=== PATIENT | male | born 1980 | race Two or more races ===

== ENCOUNTER 2020-09-05 11:18 | Observation (INO) | payer BC ==
[~2020-09-05] VITALS: Ht 175.3 cm; Wt 80.2 kg
[2020-09-05 11:56] LABS: BASO % 0.2 % (0.0-1.0); EOS % 0.3 % (0.0-3.0); HEMATOCRIT 45.8 % (42.0-52.0); HEMOGLOBIN 14.5 g/dl (13.5-17.5); LYMPH # 2.2 10^3/uL (1.5-5.0); LYMPH % 17.6 % (24.0-44.0); MEAN CORPUSCULAR HEMOGLOBIN 28.9 pg (27.0-33.0); MEAN CORPUSCULAR HGB CONC 31.7 g/dl (32.0-36.5); MEAN CORPUSCULAR VOLUME 91.4 fl (80.0-96.0); MONO # 0.7 10^3/uL (0.0-0.8); MONO % 5.3 % (0.0-5.0); NEUTROPHILS # 9.6 10^3/uL (1.5-8.5); NEUTROPHILS % 76.2 % (36.0-66.0); PLATELET COUNT, AUTOMATED 233 10^3/uL (150-450); RED BLOOD COUNT 5.01 10^6/uL (4.30-6.10); WHITE BLOOD COUNT 12.6 10^3/uL (4.0-10.0)
--- NOTE | 2020-09-05 11:58 | REP ---
INDICATION: CHEST PAIN COMPARISON: None. TECHNIQUE: Portable AP view of the chest FINDINGS: The mediastinum and cardiac silhouette are within normal limits for portable technique. Blunting to the left diaphragmatic surface and costophrenic angle with subtle opacity suggests acute versus chronic pleural reaction and subtle infiltrate. Remainder of lung espinal are clear. No pneumothorax. Skeletal structures intact. IMPRESSION: Mild pleuroparenchymal changes at the left base suggest acute and/or chronic changes. No prior examinations are available for comparison and correlation with auscultation and physical examination is recommended. <Electronically signed by Héctor Greer > 09/05/20 [id number]
[2020-09-05] MEDS ORDERED: ISOVUE-370 76% 100ML VIAL As Ordered ONE (12:22)
[2020-09-05 12:34] LABS: ALT/SGPT 39 U/L (12-78); BILIRUBIN,DIRECT 0.2 MG/DL (0.0-0.2); BILIRUBIN,TOTAL 0.8 MG/DL (0.2-1.0); BLOOD UREA NITROGEN 10 MG/DL (7-18); CALCIUM LEVEL 9.6 MG/DL (8.5-10.1); CARBON DIOXIDE LEVEL 28 MEQ/L (21-32); CHLORIDE LEVEL 102 MEQ/L (98-107); CREATININE FOR GFR 1.03 MG/DL (0.70-1.30); GLOMERULAR FILTRATION RATE > 60.0 (>60); GLUCOSE, FASTING 114 MG/DL (70-100); LIPASE 51 U/L (73-393); NT-PRO BNP 19 PG/ML (<125); POTASSIUM SERUM 4.1 MEQ/L (3.5-5.1); SODIUM LEVEL 137 MEQ/L (136-145); TOTAL PROTEIN 8.2 GM/DL (6.4-8.2)
--- NOTE | 2020-09-05 12:51 | REP ---
INDICATION: pleuritic CP r/o PE COMPARISON: None. TECHNIQUE: Axial contrast enhanced images from the thoracic inlet to the upper abdomen using pulmonary embolus technique with multiplanar re-formations. 75 ml Isovue 370 intravenous contrast material administered without complication. This CT examination was performed using the following dose reduction techniques: Automated exposure control, adjustment of mA and/or kv according to the patient's size, and use of iterative reconstruction technique. FINDINGS: There is focal pulmonary embolus in segmental branch to the anterior left lower lobe with small to moderate peripheral consolidation. Mild left posterior basilar atelectasis and small left pleural effusion also noted. Right hemithorax is essentially clear. No pneumothorax. Tracheobronchial tree is patent. No significant adenopathy. Thoracic aorta and heart/pericardium are normal. Surrounding musculoskeletal structures are intact. Upper abdomen demonstrates normal bilateral adrenal glands. IMPRESSION: 1. Pulmonary embolus in the segmental branch to the anterior left lower lobe with associated peripheral area of consolidation. Minimal left posterior basilar atelectasis and small pleural effusion are also identified. <Electronically signed by Héctor Greer > 09/05/20 [id number]
[2020-09-05] MEDS ORDERED: ACETAMINOPHEN TAB 650MG DOSE (2X325MG) PO PRN (13:45)
[2020-09-05] MEDS ORDERED: KETOROLAC 30 MG/ML 1ML VIAL IV PRN (13:45)
[2020-09-05 14:00] VITALS: BP 136/87
--- NOTE | 2020-09-05 14:03 | REP ---
INDICATION: PE ?DVT COMPARISON: None. TECHNIQUE: Pantoja scale and color Doppler evaluation of the right and left lower extremities using linear high frequency transducer. FINDINGS: Ultrasound examination of the right and left lower extremity deep venous structures from the common femoral vein to the popliteal vein demonstrates normal compressibility flow and wave patterns in response to respiration and augmentation. There is no evidence for deep venous thrombosis. 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 IMPRESSION: No evidence for deep venous thrombosis. <Electronically signed by Héctor Greer > 09/05/20 [id number]
[2020-09-05 14:26] LABS: RSV AMPLIFICATION NEGATIVE (NEGATIVE)
--- NOTE | 2020-09-05 14:31 | HPEPDOC ---
[facility] Medical History & Physical Date of Admission Sep 05, 2020 Date of Service: Sep 05, 2020 Attending Physician: Socorro Irizarry MD History and Physical CHIEF COMPLAINT: left side chest pain HISTORY OF PRESENT ILLNESS: Patient is a 40 y/o M with no significant PMH who presented to [facility] with chief complaint of acute onset of left side chest pain 09/03/20. Patient states pain was located on the left chest lateral to the left breast, constant, 7/10 on pain scale, sharp and localized. The pain was new to him. He states the pain was worsened with movement, laughing, coughing, deep breathing. He states the only medication that helped with pain control was a Tylenol with aspirin. Other a ssociated symptoms include shortness of breath and chills. The patient denies any coughing, fevers, recent long trips either in a car or in a plane, history of blood clots, history of family members with blood clot or blood issues, hormone therapy or changes in home medication. Due to persistent pain the patient came to the emergency room for further workup. In the ER, VS were stable.D Dimer elevated, CTA chest showed: 1. Pulmonary embolus in the segmental branch to the anterior left lower lobe with associated peripheral area of consolidation. Minimal left posterior basilar atelectasis and small pleural effusion are also identified. US lower ext pending. COVID pending . First set of troponin negative, all other labs were unremarkable. Patient had continued chest pain with deep breathing. He was admitted under observation status for chest pain, shortness of breath likely 2/2 to pulmonary embolus, community acquired PNA. REVIEW OF SYSTEMS: CONSTITUTIONAL: Denies lack of energy, unexplained weight gain or weight loss, loss of appetite, fever, night sweats EYES: Denies eye drainage, eye pain, visual changes, dry/irritated eye EARS, NOSE, MOUTH, THROAT: Denies difficulty hearing, ringing in ears, mouth sores, loose teeth, sore throat, facial numbness or pain NECK: Denies swollen glands CARDIOVASCULAR: Denies irregular heartbeat, racing heart, chest pains, swelling of feet or legs, pain in legs with walking RESPIRATORY: Denies night sweats, wheezing, sputum production, oxygen at home, coughing up blood, cough lasting > 1 month GASTROINTESTINAL: Denies abdominal pain, constipation, bloody stool, diarrhea, heartburn, nausea, vomiting GENITOURINARY: Denies painful urination, bloody urine, frequent urination, urgency, leaking urine, impotence MUSCULOSKELETAL: Denies joint pain, muscle pain, leg swelling INTEGUMENTARY: Denies rash, itching, new skin lesion, change in existing skin lesion, hair loss or increase, breast changes. NEUROLOGICAL: Denies headaches, dizziness, difficulty walking, numbness or tingling PSYCHIATRIC: Denies depression, anxiety, recurrent bad thoughts, mood swings, hallucinations PAST MEDICAL HISTORY: None PAST SURGICAL HISTORY: Right knee/meniscus surgery FAMILY HISTORY: Father: HTN, alive Mother: at young age from MVA SOCIAL HISTORY: Denies smoking, illicit drug use. Drinks alcohol very rarely, on special occasions. Lives with his locally. PCP- Jamal Do MD. Full Code. ALLERGIES: Please see below. HOME MEDICATIONS: Please see below. PHYSICAL EXAMINATION: VS: Please see below CONSTITUTIONAL: No acute distress, resting comfortably, AAO x 3 EYES: PERRLA, EOM intact, corrective lenses in place HENT, MOUTH: Normocephalic, atraumatic, moist mucous membranes NECK: SUPPLE, no JVD, no lymphadenopathy, no carotid bruit CV: Regular rate and rhythm, S1S2 normal, no murmurs/rubs/gallops RESPIRATORY: Clear to auscultation bilaterally, no rales/rhonchi/wheezes GI: BS positive in 4 quadrants, soft, nontender, nondistended, no rebound or guarding, no organomegaly : Deferred MUSCULOSKELETAL: Normal ROM. No cyanosis, clubbing, swelling, joint deformity, extremity edema INTEGUMENTARY: Intact, no rashes, no lesions, no erythema NEUROLOGIC: Cranial Nerves II-XII are intact, no focal deficits PSYCHIATRIC: Mood and affect are normal LABORATORY DATA: Please see below IMAGING: CTA chest: Pulmonary embolus in the segmental branch to the anterior left lower lobe with associated peripheral area of consolidation. Minimal left posterior basilar atelectasis and small pleural effusion are also identified. Doppler LE b/l: Pending results ASSESSMENT: 40 y/o M with no significant PMH admitted under observation status for further workup/treatment of chest pain, shortness of breath likely 2/2 to pulmonary embolus, community acquired PNA. PLAN: Chest pain likely multifactorial 2/2 to pulmonary embolus and PNA. No known cardiac RF. -Currently saturating well on RA -Trop x 1 neg, f/u repeat troponins over this evening -ECG NSR -Tylenol, toradol PRN, tele -Please see individual plans of PE and PNA treatment below Pulmonary embolus, unprovoked -Denies RF -Doppler LE: pending -Starting on lovenox 80 mg SC BID for today, Incentive spirometer -Can likely transition to PO xarelto in the AM -Protein C&S, Factor II, Factor V Leiden and Antithrombin III panel ordered and will likely take time to return. Would recommend patient f/u with PCP this coming week to receive results after discharge. Community Acquired PNA -CT chest above -WBC wnl, afebrile -Started on PO levofloxacin -Tylenol, IS Q2H while awake DVT px -SC Enoxaparin BID DISPOSITION: Admitted under observation status for treatment/workup above. PLan is discharge home when medically improved. Vital Signs Vital Signs Date Time Temp Pulse Resp B/P (MAP) Pulse Ox O2 Delivery O2 Flow Rate FiO2 09/05/20 13:30 77 20 126/80 (95) 99 Room Air 09/05/20 11:19 97.4 Laboratory Data Labs 24H Laboratory Tests 2 09/05/20 11:46: Immature Granulocyte % (Auto) 0.4, Neutrophils (%) (Auto) 76.2H, Lymphocytes (%) (Auto) 17.6L, Monocytes (%) (Auto) 5.3H, Eosinophils (%) (Auto) 0.3, Basophils (%) (Auto) 0.2, Neutrophils # (Auto) 9.6H, Lymphocytes # (Auto) 2.2, Monocytes # (Auto) 0.7, Eosinophils # (Auto) 0.0, Basophils # (Auto) 0.0, Nucleated Red Blood Cells % (auto) 0.0, D-Dimer, Quantitative 848.51H, Anion Gap 7L, Glomerular Filtration Rate > 60.0, Calcium Level 9.6, Total Bilirubin 0.8, Direct Bilirubin 0.2, Aspartate Amino Transf (AST/SGOT) 16, Alanine Aminotransferase (ALT/SGPT) 39, Alkaline Phosphatase 94, AA-Voo-C-Type Natriuretic Peptide 19, Total Protein 8.2, Albumin 4.0, Albumin/Globulin Ratio 1.0, Lipase 51L, Thyroid Stimulating Hormone (TSH) 1.390 09/05/20 11:47: POC Glucose (Misc Panel) 121H, POC Sodium (Misc Panel) 137, POC Potassium (Misc Panel) 3.9, POC Chloride (Misc Panel) 99, POC Total CO2 (Misc Panel) 27.0, POC Blood Urea Nitrogen (Misc Panel 10, POC Ionized Calcium (Misc Panel) 4.8, POC Creatinine (Misc Panel) 0.9, POC Hematocrit (Misc Panel) 44.0 09/05/20 11:48: POC Troponin I (Misc) 0.00 09/05/20 13:39: CBC/BMP Laboratory Tests 09/05/20 11:46 Home Medications No Active Prescriptions or Reported Meds Allergies Coded Allergies: No Known Allergies (Unverified , 09/05/20) A-FIB/CHADSVASC A-FIB History Current/History of A-Fib/PAF?: No Current PO Anticoag Therapy: No Age/Risk Factor Scoring CHADSVASC: CHADSVASC Response (Comments) Value Age Risk Factor Age < 65 years old 0 Gender Risk Factor Male 0 Hx of CHF No 0 Hx of HTN No 0 Hx of Stroke/TIA/or VTE No 0 Hx of Diabetes No 0 Hx of Vascular Disease No 0 Total 0 Treatment Treatment ordered: Other Other anticoagulant ordered: lovenox BID Socorro Irizarry MD Sep 05, 2020 14:31
[2020-09-05 14:32] LABS: INR 0.96
[2020-09-05 14:33] LABS: PARTIAL THROMBOPLASTIN TIME 36.1 SECONDS (24.2-38.5)
--- NOTE | 2020-09-05 14:40 | ECGEPIP ---
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
[2020-09-05] MEDS: ENOXAPARIN 80MG/0.8ML SYRINGE (J1650 PER 10MG) SC SCH (17:35)
[2020-09-05] MEDS ORDERED: LevoFLOXacin 750 MG TABLET PO SCH (18:00)
[2020-09-05 22:00] VITALS: BP 133/83
[2020-09-06] MEDS: ENOXAPARIN 80MG/0.8ML SYRINGE (J1650 PER 10MG) SC SCH (04:12)
[2020-09-06 06:00] VITALS: BP 144/79
[2020-09-06 06:51] LABS: HEMATOCRIT 42.7 % (42.0-52.0); HEMOGLOBIN 13.3 g/dl (13.5-17.5); MEAN CORPUSCULAR HGB CONC 31.1 g/dl (32.0-36.5); MEAN CORPUSCULAR VOLUME 93.2 fl (80.0-96.0); PLATELET COUNT, AUTOMATED 206 10^3/uL (150-450); RED BLOOD COUNT 4.58 10^6/uL (4.30-6.10); WHITE BLOOD COUNT 12.9 10^3/uL (4.0-10.0)
[2020-09-06 07:24] LABS: ALBUMIN 3.4 GM/DL (3.2-5.2); ALT/SGPT 37 U/L (12-78); BILIRUBIN,TOTAL 0.5 MG/DL (0.2-1.0); BLOOD UREA NITROGEN 17 MG/DL (7-18); CALCIUM LEVEL 8.7 MG/DL (8.5-10.1); CARBON DIOXIDE LEVEL 29 MEQ/L (21-32); CHLORIDE LEVEL 108 MEQ/L (98-107); CREATININE FOR GFR 1.14 MG/DL (0.70-1.30); GLOMERULAR FILTRATION RATE > 60.0 (>60); GLUCOSE, FASTING 114 MG/DL (70-100); POTASSIUM SERUM 4.5 MEQ/L (3.5-5.1); SODIUM LEVEL 141 MEQ/L (136-145); TOTAL PROTEIN 6.9 GM/DL (6.4-8.2)
[2020-09-06] MEDS ORDERED: LEVO500T3 PO (08:33)
[2020-09-06] MEDS ORDERED: ACET325C5 PO (08:33)
[2020-09-06] MEDS ORDERED: XARE15TA PO (08:33)
[2020-09-06] MEDS ORDERED: IBUP-1114 PO (10:24)
--- NOTE | 2020-09-06 13:18 | DS.PDOC ---
Discharge Summary General Date of Admission Sep 05, 2020 at 11:19 Date of Discharge 09/06/20 Attending Physician: Socorro Irizarry MD Discharge Summary HISTORY OF PRESENT ILLNESS: Patient is a 40 y/o M with no significant PMH who presented to [facility] with chief complaint of acute onset of left side chest pain 09/03/20. Patient states pain was located on the left chest lateral to the left breast, constant, 7/10 on pain scale, sharp and localized. The pain was new to him. He states the pain was worsened with movement, laughing, coughing, deep breathing. He states the only medication that helped with pain control was a Tylenol with aspirin. Other associated symptoms include shortness of breath and chills. The patient denies any coughing, fevers, recent long trips either in a car or in a plane, history of blood clots, history of family members with blood clot or blood issues, hormone therapy or changes in home medication. Due to persistent pain the patient came to the emergency room for further workup. In the ER, VS were stable.D Dimer elevated, CTA chest showed: 1. Pulmonary embolus in the segmental branch to the anterior left lower lobe with associated peripheral area of consolidation. Minimal left posterior basilar atelectasis and small pleural effusion are also identified. US lower ext pending. COVID pending . First set of troponin negative, all other labs were unremarkable. Patient had continued chest pain with deep breathing. He was admitted under observation status for chest pain, shortness of breath likely 2/2 to pulmonary embolus, community acquired PNA. HOSPITAL COURSE: Patient remained on RA during hospital stay. He was tachycardic and had in termittent chest pain as described above, controlled with medications. Incentive spirometer was prescribed and he followed instructions to continue to use. Trop neg x 3 sets overnight. Doppler lower ext: neg for DVT. Overall, by next AM after admission patient felt improved. I advised him that he may want to take tylenol scheduled for the next several days instead of "as needed", this will help decrease pain throughout the day. After those several days, he can switched to "as needed" every 6hours. I also added ibuprofen to use "as needed" while he is using the scheduled tylenol. He is also encouraged to eat a small snack or meal with taking xarelto- this is important and helps with its efficacy. he is encouraged to hydrate and eat adequately while on these medications. He is advised to call and follow up with PCP after discharge within 1-2 weeks. He is advised to bring discharge instructions with him to his next appointment with your PCP. They will need to follow up on additional tests that were drawn to help diagnose/rule out causes for PE (Protein C and S, Antithrombin III, Factor V Leiden, etc). He is also encouraged to continue to use incentive spirometer device at home Q2 hours while awake for then next 5-6 days. REVIEW OF SYSTEMS: CONSTITUTIONAL: Denies lack of energy, unexplained weight gain or weight loss, loss of appetite, fever, night sweats EYES: Denies eye drainage, eye pain, visual changes, dry/irritated eye EARS, NOSE, MOUTH, THROAT: Denies difficulty hearing, ringing in ears, mouth sores, loose teeth, sore throat, facial numbness or pain NECK: Denies swollen glands CARDIOVASCULAR: Denies irregular heartbeat, racing heart, chest pains, swelling of feet or legs, pain in legs with walking RESPIRATORY: Denies night sweats, wheezing, sputum production, oxygen at home, coughing up blood, cough lasting > 1 month GASTROINTESTINAL: Denies abdominal pain, constipation, bloody stool, diarrhea, heartburn, nausea, vomiting GENITOURINARY: Denies painful urination, bloody urine, frequent urination, urgency, leaking urine, impotence MUSCULOSKELETAL: Denies joint pain, muscle pain, leg swelling INTEGUMENTARY: Denies rash, itching, new skin lesion, change in existing skin lesion, hair loss or increase, breast changes. NEUROLOGICAL: Denies headaches, dizziness, difficulty walking, numbness or tingling PSYCHIATRIC: Denies depression, anxiety, recurrent bad thoughts, mood swings, hallucinations PAST MEDICAL HISTORY: None PAST SURGICAL HISTORY: Right knee/meniscus surgery FAMILY HISTORY: Father: HTN, alive Mother: at young age from MVA SOCIAL HISTORY: Denies smoking, illicit drug use. Drinks alcohol very rarely, on special occasio ns. Lives with his locally. PCP- Jamal Do MD. Full Code. ALLERGIES: Please see below. HOME MEDICATIONS: Please see below. PHYSICAL EXAMINATION: VS: Please see below CONSTITUTIONAL: No acute distress, resting comfortably, AAO x 3 EYES: PERRLA, EOM intact, corrective lenses in place HENT, MOUTH: Normocephalic, atraumatic, moist mucous membranes NECK: SUPPLE, no JVD, no lymphadenopathy, no carotid bruit CV: Regular rate and rhythm, S1S2 normal, no murmurs/rubs/gallops RESPIRATORY: Clear to auscultation bilaterally, no rales/rhonchi/wheezes GI: BS positive in 4 quadrants, soft, nontender, nondistended, no rebound or guarding, no organomegaly : Deferred MUSCULOSKELETAL: Normal ROM. No cyanosis, clubbing, swelling, joint deformity, extremity edema INTEGUMENTARY: Intact, no rashes, no lesions, no erythema NEUROLOGIC: Cranial Nerves II-XII are intact, no focal deficits PSYCHIATRIC: Mood and affect are normal LABORATORY DATA: Please see below IMAGING: CTA chest: Pulmonary embolus in the segmental branch to the anterior left lower lobe with associated peripheral area of consolidation. Minimal left posterior basilar atelectasis and small pleural effusion are also identified. Doppler LE b/l: neg for DVT ASSESSMENT: 40 y/o M with no significant PMH admitted under observation status for further workup/treatment of chest pain, shortness of breath likely 2/2 to pulmonary embolus, community acquired PNA. PLAN: Chest pain likely multifactorial 2/2 to pulmonary embolus and PNA. No known cardiac RF. -Currently saturating well on RA -Trop x3 neg -ECG NSR -Tylenol, ibuprofen PRN -Please see individual plans of PE and PNA treatment below Pulmonary embolus, unprovoked -Denies RF -Doppler LE: neg -Protein C&S, Factor II, Factor V Leiden and Antithrombin III panel ordered and will likely take time to return. Would recommend patient f/u with PCP this coming week to receive results after discharge. -Started on xarelto 15 mg PO BID x 21 days, will need script by PCP for new dose of 20 mg Po daily after 21 days to be sent into pharmacy. -Tylenol, ibuprofen PRN for pain. IS encouraged to be used as o/p Q2H while awake for next 5 days. Community Acquired PNA -CT chest above -WBC wnl, afebrile -Started on PO levofloxacin x7 days -Tylenol, IS Q2H while awake DVT px -xarelto DISPOSITION: D/lisa home today to follow up with PCP within 1-2 weeks after discharge. TIME SPENT ON DISCHARGE: Greater than 30 minutes. Vital Signs/I&Os Vital Signs Date Time Temp Pulse Resp B/P (MAP) Pulse Ox O2 Delivery O2 Flow Rate FiO2 09/06/20 06:00 98.1 95 19 144/79 (100) 96 Room Air I&O- Last 24 Hours up to 6 AM 09/06/20 05:59 Intake Total 1250 ml Output Total 200 ml Balance 1050 ml Laboratory Data Labs 24H Laboratory Tests 2 09/05/20 13:39: Coronavirus (COVID-19)(PCR) NEGATIVE, Influenza Type A (RT-PCR) NEGATIVE, Influenza Type B (RT-PCR) NEGATIVE, Respiratory Syncytial Virus (PCR) NEGATIVE 09/05/20 14:07: Prothrombin Time 13.0, Prothromb Time International Ratio 0.96, Activated Partial Thromboplast Time 36.1 09/05/20 15:48: Troponin I < 0.02 09/05/20 20:15: Troponin I < 0.02 09/06/20 06:39: Nucleated Red Blood Cells % (auto) 0.0, Anion Gap 4L, Glomerular Filtration Rate > 60.0, Calcium Level 8.7, Total Bilirubin 0.5, Aspartate Amino Transf (AST/SGOT) 16, Alanine Aminotransferase (ALT/SGPT) 37, Alkaline Phosphatase 85, Total Protein 6.9, Albumin 3.4, Albumin/Globulin Ratio 1.0 CBC/BMP Laboratory Tests 09/06/20 06:39 Discharge Medications Scheduled Levofloxacin (Levofloxacin) 500 Mg Tablet, 500 MG PO DAILY Rivaroxaban (Xarelto) 15 Mg Tablet, 15 MG PO BID Scheduled PRN Acetaminophen (Tylenol) 325 Mg Capsule, 650 MG PO Q6HP PRN for PAIN OR FEVER Ibuprofen (Ibuprofen) 400 Mg Tablet, 1 TAB PO Q6HP PRN for fever Allergies Coded Allergies: No Known Allergies (Unverified , 09/05/20) Socorro Irizarry MD Sep 06, 2020 13:18
[2020-09-10 19:06] LABS: ANTI THROMBIN 3 ANTIGEN IMMUNO 118 % (72-124); ANTI THROMBIN 3 FUNCT ACTIVITY 118 % (75-135); CARDIOLIPIN IGA ANTIBODY <9 APL U/mL (0-11); CARDIOLIPIN IGG ANTIBODY <9 GPL U/mL (0-14); CARDIOLIPIN IGM ANTIBODY 9 MPL U/mL (0-12); PHOSPHOLIPIDS LEVEL 211 mg/dL (150-250); PROTEIN C FUNCTIONAL ACTIVITY 127 % (73-180); PROTEIN S FUNCTIONAL ACTIVITY 88 % (63-140)
[2020-09-11 10:42] LABS: DRVV SCREEN 37.2 SEC
[2020-09-11 10:47] LABS: PTT LUPUS TYPE ANTICOAG SCREEN 0.9 (0-1.2)
== END 2020-09-06 11:42 | disposition home or self-care (01) ==
LOC: M ED 11:18 → M ED INP 11:19 → M MSPAV 14:43
PROVIDERS: ADMIT Internal Medicine; ATTEND Internal Medicine
DX: I26.99 Other pulmonary embolism without acute cor pulmonale (principal); J18.9 Pneumonia, unspecified organism; Z79.899 Other long term (current) drug therapy
CPT/HCPCS: 36415; 71045; 71275; 80047; 80048; 80053; 80076; 81240; 83690; 83880; 84311; 84443; 84484; 85025; 85027; 85300; 85301; 85303; 85305; 85379; 85610; 85730; 86147; 87631; 93005; 93041; 93970; 94760; 96372; 96374; 99285; J1650; J1885; Q9967

== ENCOUNTER → 2020-09-17 | Outpatient (REF) | payer BC ==
[~2020-09-17] MED LIST: ACET325C5 PO; IBUP-1114 PO; LEVO500T3 PO; XARE15TA PO
[2020-09-17 14:09] LABS: CHOLESTEROL RISK RATIO 5.611 (<5)
[2020-09-17 14:13] LABS: HEMOGLOBIN A1c 5.7 %
== END ==
LOC: M SFHCPLAZ 10:22
PROVIDERS: ATTEND Physician Assistant Medical
DX: Z13.220 Encounter for screening for lipoid disorders (principal); Z13.1 Encounter for screening for diabetes mellitus; I26.93 Single subsegmental thrombotic pulmonary embolism without acute cor pulmonale

== ENCOUNTER → 2020-10-12 | Outpatient (CLI) | payer BC ==
--- NOTE | 2020-10-12 12:50 | REPPI ---
INDICATION: PNEUMONIA LEFT LOWER LOBE COMPARISON: 09/05/2020 TECHNIQUE: PA and lateral. FINDINGS: Small to moderate left basilar effusion with underlying airspace disease appears slightly increased from prior examination and should be correlated with physical examination. Remainder of the lung espinal are well aerated and clear. Mediastinum and cardiac silhouette are normal. Skeletal structures are intact. IMPRESSION: Small to moderate left pleural effusion and associated airspace disease appears increased from prior examination. <Electronically signed by Héctor Greer > 10/12/20 [id number]
== END ==
LOC: M PLAIMG 11:30
PROVIDERS: ATTEND Physician Assistant Medical
DX: J18.9 Pneumonia, unspecified organism (principal); J91.8 Pleural effusion in other conditions classified elsewhere
CPT/HCPCS: 36415; 71046; 86769; G0103

== ENCOUNTER → 2020-10-12 | Outpatient (REF) | payer BC | LOC: M SFHCPLAZ 11:29 | PROVIDERS: ATTEND Physician Assistant Medical | DX: I26.93 Single subsegmental thrombotic pulmonary embolism without acute cor pulmonale (principal); Z12.5 Encounter for screening for malignant neoplasm of prostate ==

== ENCOUNTER → 2021-01-28 | Outpatient (REF) | payer BC ==
[2021-01-28 13:43] LABS: BASO % 0.5 % (0.0-1.0); EOS # 0.1 10^3/uL (0.0-0.5); EOS % 1.3 % (0.0-3.0); HEMATOCRIT 45.8 % (42.0-52.0); HEMOGLOBIN 14.8 g/dl (13.5-17.5); LYMPH # 2.6 10^3/uL (1.5-5.0); LYMPH % 33.1 % (24.0-44.0); MEAN CORPUSCULAR HEMOGLOBIN 29.5 pg (27.0-33.0); MEAN CORPUSCULAR HGB CONC 32.3 g/dl (32.0-36.5); MEAN CORPUSCULAR VOLUME 91.2 fl (80.0-96.0); MONO # 0.4 10^3/uL (0.0-0.8); MONO % 5.6 % (2.0-8.0); NEUTROPHILS # 4.7 10^3/uL (1.5-8.5); NEUTROPHILS % 59.2 % (36.0-66.0); PLATELET COUNT, AUTOMATED 182 10^3/uL (150-450); RED BLOOD COUNT 5.02 10^6/uL (4.30-6.10); WHITE BLOOD COUNT 7.9 10^3/uL (4.0-10.0)
[2021-01-28 14:04] LABS: HEMOGLOBIN A1c 5.3 %
[2021-01-28 14:12] LABS: C REACTIVE PROTEIN QUANTITATIV 0.4 MG/DL (0.00-0.30); CHOLESTEROL RISK RATIO 3.934 (<5); FREE T4 1.11 NG/DL (0.76-1.46); THYROID STIMULATING HORMONE 1.75 uIU/ML (0.358-3.740)
[2021-01-28 14:15] LABS: CREATININE, URINE 91.6 MG/DL; MALB URINE SIEMENS < 5.0 MG/L; MAU/CREAT RATIO 5.4 MCG/MG (0.0-30.0); PTH INTACT 64.4 PG/ML (18.5-88.0); TOTAL 25(OH) VITAMIN D 20.9 NG/ML (30.0-100.0)
== END ==
LOC: M SFHCPLAZ 11:20
PROVIDERS: ATTEND Family Medicine
DX: R73.01 Impaired fasting glucose (principal); E78.2 Mixed hyperlipidemia; I26.93 Single subsegmental thrombotic pulmonary embolism without acute cor pulmonale

== ENCOUNTER → 2022-05-19 | Outpatient (CLI) | payer BC ==
[~2022-05-19] MED LIST changes: +LEVO1TAB39 PO; -LEVO500T3 PO
[2022-05-19 11:49] LABS: HEMOGLOBIN A1c 5.6 %
[2022-05-19 12:08] LABS: ALBUMIN 4.1 GM/DL (3.2-5.2); BLOOD UREA NITROGEN 9 MG/DL (7-18); C REACTIVE PROTEIN QUANTITATIV 0.44 MG/DL (0.00-0.30); CALCIUM LEVEL 9.6 MG/DL (8.5-10.1); CARBON DIOXIDE LEVEL 31 MEQ/L (21-32); CHLORIDE LEVEL 103 MEQ/L (98-107); CHOLESTEROL LEVEL 206 MG/DL (<200); CHOLESTEROL RISK RATIO 4.681 (<5); CREATININE FOR GFR 1.01 MG/DL (0.70-1.30); GLOMERULAR FILTRATION RATE > 60.0 (>60); GLUCOSE, FASTING 100 MG/DL (70-100); HDL CHOLESTEROL 44 MG/DL (>40); LDL CHOLESTEROL 127 MG/DL (<100); NON-HDL-C 162 MG/DL; POTASSIUM SERUM 4.3 MEQ/L (3.5-5.1); SODIUM LEVEL 137 MEQ/L (136-145); TRIGLYCERIDES LEVEL 175 MG/DL (<150)
[2022-05-19 12:53] LABS: PTH INTACT 50.9 PG/ML (18.5-88.0)
[2022-05-20 08:09] LABS: APOLIPOPROTEIN B/A-1 RATIO 0.8 ratio (0.0-0.7); INSULIN LEVEL 16.9 uIU/mL (2.6-24.9)
== END ==
LOC: M PLALAB 09:07
PROVIDERS: ATTEND Family Medicine
DX: R73.01 Impaired fasting glucose (principal)

== ENCOUNTER → 2023-08-16 | Outpatient (CLI) | payer BC ==
[2023-08-16 14:39] LABS: C REACTIVE PROTEIN QUANTITATIV < 0.40 MG/DL (<1.0)
[2023-08-16 14:40] LABS: HEMOGLOBIN A1c 5.2 % (4.0-6.0)
[2023-08-16 14:41] LABS: CPK CREATINE PHOSPHOKINASE 61 U/L (46-171)
[2023-08-16 14:45] LABS: CHOLESTEROL LEVEL 217 MG/DL (<200); CHOLESTEROL RISK RATIO 5.04 (<5); FREE T4 1.17 NG/DL (0.89-1.76); LDL CHOLESTEROL 147.2 MG/DL (<100); THYROID STIMULATING HORMONE 1.724 uIU/ML (0.55-4.78); TRIGLYCERIDES LEVEL 134 MG/DL (<150)
[2023-08-19 00:06] LABS: INSULIN LEVEL 8.8 uIU/mL (2.6-24.9)
== END ==
LOC: M PLALAB 10:14
PROVIDERS: ATTEND Family Medicine
DX: R73.01 Impaired fasting glucose (principal); I26.93 Single subsegmental thrombotic pulmonary embolism without acute cor pulmonale; E78.2 Mixed hyperlipidemia

== ENCOUNTER → 2023-11-10 | Outpatient (CLI) | payer BC ==
[2023-11-10 14:37] LABS: CPK CREATINE PHOSPHOKINASE 59 U/L (46-171)
[2023-11-10 14:38] LABS: ALBUMIN 3.7 G/DL (3.2-5.2); ALKALINE PHOSPHATASE 55 U/L (46-116); ALT/SGPT 10 U/L (7.0-40); AST/SGOT 9 U/L (<34); BILIRUBIN,TOTAL 0.6 MG/DL (0.3-1.2); BLOOD UREA NITROGEN 11 MG/DL (9-23); CALCIUM LEVEL 8.6 MG/DL (8.5-10.1); CARBON DIOXIDE LEVEL 29 MMOL/L (20-31); CHLORIDE LEVEL 109 MMOL/L (98-107); CHOLESTEROL LEVEL 168 MG/DL (<200); CHOLESTEROL RISK RATIO 4.46 (<5); CREATININE FOR GFR 0.84 MG/DL (0.70-1.30); GLOMERULAR FILTRATION RATE > 60.0 (>60); GLUCOSE, FASTING 103 MG/DL (60-100); HDL CHOLESTEROL 37.6 MG/DL (>40); NON-HDL-C 130.4 MG/DL; POTASSIUM SERUM 4.8 MMOL/L (3.5-5.1); SODIUM LEVEL 141 MMOL/L (136-145); TOTAL PROTEIN 6.5 G/DL (5.7-8.2); TRIGLYCERIDES LEVEL 77 MG/DL (<150)
== END ==
LOC: M PLALAB 10:04
PROVIDERS: ATTEND Family Medicine
DX: E78.2 Mixed hyperlipidemia (principal)

== ENCOUNTER → 2024-06-27 | Outpatient (CLI) | payer BC ==
[2024-06-27 13:39] LABS: BASO % 0.4 % (0.0-1.0); EOS % 0.8 % (0.0-3.0); HEMATOCRIT 45.6 % (42.0-52.0); HEMOGLOBIN 15.1 g/dl (13.5-17.5); LYMPH # 2.2 10^3/uL (1.5-5.0); LYMPH % 43.1 % (24.0-44.0); MEAN CORPUSCULAR HEMOGLOBIN 30.3 pg (27.0-33.0); MEAN CORPUSCULAR HGB CONC 33.1 g/dl (32.0-36.5); MEAN CORPUSCULAR VOLUME 91.4 fl (80.0-96.0); MONO # 0.3 10^3/uL (0.0-0.8); MONO % 4.8 % (2.0-8.0); NEUTROPHILS # 2.6 10^3/uL (1.5-8.5); NEUTROPHILS % 50.7 % (36.0-66.0); PLATELET COUNT, AUTOMATED 202 10^3/uL (150-450); RED BLOOD COUNT 4.99 10^6/uL (4.30-6.10); WHITE BLOOD COUNT 5.2 10^3/uL (4.0-10.0)
[2024-06-27 14:02] LABS: HEMOGLOBIN A1c 5.4 % (4.0-6.0)
[2024-06-27 14:15] LABS: ALKALINE PHOSPHATASE 71 U/L (46-116); ALT/SGPT 13 U/L (7.0-40); AST/SGOT < 8 U/L (<34); BILIRUBIN,TOTAL 0.8 MG/DL (0.3-1.2); BLOOD UREA NITROGEN 12 MG/DL (9-23); CALCIUM LEVEL 9.5 MG/DL (8.5-10.1); CARBON DIOXIDE LEVEL 30 MMOL/L (20-31); CHLORIDE LEVEL 106 MMOL/L (98-107); CHOLESTEROL LEVEL 197 MG/DL (<200); CHOLESTEROL RISK RATIO 4.07 (<5); CREATININE FOR GFR 0.83 MG/DL (0.70-1.30); GLOMERULAR FILTRATION RATE > 60.0 (>60); GLUCOSE, FASTING 90 MG/DL (60-100); HDL CHOLESTEROL 48.4 MG/DL (>40); LDL CHOLESTEROL 127.8 MG/DL (<100); NON-HDL-C 148.6 MG/DL; POTASSIUM SERUM 4.4 MMOL/L (3.5-5.1); PTH INTACT 74.5 PG/ML (18.5-88.0); SODIUM LEVEL 140 MMOL/L (136-145); TOTAL PROTEIN 7.3 G/DL (5.7-8.2); TRIGLYCERIDES LEVEL 104 MG/DL (<150)
[2024-06-27 14:17] LABS: FERRITIN 274.6 NG/ML (10.5-307.3); TOTAL 25(OH) VITAMIN D 31.5 NG/ML (20.0-100.0)
[2024-06-29 11:37] LABS: INSULIN LEVEL 6.3 uIU/mL (<=18.4)
[2024-07-01 16:23] LABS: APOLIPOPROTEIN B/A-1 RATIO 0.75 (<0.77)
== END ==
LOC: M PLALAB 11:33
PROVIDERS: ATTEND Family Medicine
DX: E55.9 Vitamin D deficiency, unspecified (principal); E78.2 Mixed hyperlipidemia; R73.01 Impaired fasting glucose

== ENCOUNTER 2024-09-16 09:24 | Day surgery (SDC) | payer BC ==
[~2024-09-16] VITALS: Ht 175.3 cm; Wt 72.6 kg
[2024-09-16] MEDS ORDERED: propofoL 200 MG/20 ML VIAL As Ordered ONE (10:24)
[2024-09-16] MEDS ORDERED: LIDOCAINE 2% 100MG/5ML SDV (FOR ANES.) As Ordered ONE (10:24)
[2024-09-16 11:10] VITALS: BP 124/72; O2SAT 100
== END 2024-09-16 11:11 | disposition home or self-care (01) ==
LOC: M OPP 09:24
PROVIDERS: ATTEND Internal Medicine Gastroenterology
DX: Z12.11 Encounter for screening for malignant neoplasm of colon (principal); K64.0 First degree hemorrhoids; Z88.0 Allergy status to penicillin

== ENCOUNTER → 2025-07-16 | Outpatient (CLI) | payer BC ==
[2025-07-16 13:32] LABS: C REACTIVE PROTEIN QUANTITATIV < 0.50 MG/DL (<1.0)
[2025-07-16 13:33] LABS: ALT/SGPT 16 U/L (7.0-40); AST/SGOT 16 U/L (<34); CALCIUM LEVEL 9.0 MG/DL (8.5-10.1); CARBON DIOXIDE LEVEL 29 MMOL/L (20-31); CHLORIDE LEVEL 103 MMOL/L (98-107); CHOLESTEROL LEVEL 189 MG/DL (<200); CHOLESTEROL RISK RATIO 4.09 (<5); CREATININE FOR GFR 0.97 MG/DL (0.70-1.30); GLOMERULAR FILTRATION RATE > 90.0 (>60); IRON (FE) 130 UG/DL (65-175); LDL CHOLESTEROL 124.2 MG/DL (<100); NON-HDL-C 142.8 MG/DL; PERCENT SATURATION 44.4 % (19.7-50.0); POTASSIUM SERUM 4.5 MMOL/L (3.5-5.1); PTH INTACT 47.0 PG/ML (18.5-88.0); SODIUM LEVEL 141 MMOL/L (136-145); TRIGLYCERIDES LEVEL 93 MG/DL (<150)
[2025-07-16 13:37] LABS: TOTAL 25(OH) VITAMIN D 29.4 NG/ML (20.0-100.0)
[2025-07-16 14:16] LABS: ESTIMATED AVERAGE GLUCOSE 111.0 MG/DL (60-110)
[2025-07-17 09:43] LABS: INSULIN LEVEL 9.2 uIU/mL (<=18.4)
== END ==
LOC: M PLALAB 08:45
PROVIDERS: ATTEND Family Medicine
DX: E78.2 Mixed hyperlipidemia (principal); R73.01 Impaired fasting glucose; E55.9 Vitamin D deficiency, unspecified; R79.89 Other specified abnormal findings of blood chemistry